=== PATIENT | male | born 1940 | race Caucasian/White ===

== ENCOUNTER → 2017-10-31 08:11 | Outpatient (CLI) | payer MEDICARE | END | disposition home or self-care (01) | LOC: D.US 08:11 | DX: K76.0 Fatty (change of) liver, not elsewhere classified (principal); R10.12 Left upper quadrant pain; R10.32 Left lower quadrant pain ==

== ENCOUNTER → 2018-05-04 08:57 | Outpatient (CLI) | payer MEDICARE ==
[2018-05-04 10:46] LABS: BILIRUBIN - DIRECT 0.24 mg/dL (0.00-0.30); BILIRUBIN - INDIRECT 0.79 mg/dL (0.00-1.00); BILIRUBIN - TOTAL 1.03 mg/dL (0.2-1.3); PROTEIN - SERUM 7.5 g/dL (6.4-8.2)
== END | disposition home or self-care (01) ==
LOC: D.US 08:57
PROVIDERS: Internal Medicine Gastroenterology
DX: K76.0 Fatty (change of) liver, not elsewhere classified (principal)

== ENCOUNTER → 2018-11-02 06:52 | Outpatient (CLI) | payer MEDICARE ==
[2018-11-02 07:30] LABS: ALBUMIN 4.1 g/dL (3.4-5.0); BILIRUBIN - DIRECT 0.17 mg/dL (0.00-0.30); BILIRUBIN - INDIRECT 0.64 mg/dL (0.00-1.00); BILIRUBIN - TOTAL 0.81 mg/dL (0.2-1.3)
== END | disposition home or self-care (01) ==
LOC: D.US 06:52
PROVIDERS: ATTEND Internal Medicine Gastroenterology
DX: K76.0 Fatty (change of) liver, not elsewhere classified (principal)